=== PATIENT | female | born 2000 | race Caucasian/White ===

== ENCOUNTER → 2020-07-20 18:54 | Observation (INO) ==
[2020-07-20 14:41] LABS: Bacteria,Urine Few per hpf (None-Few); Bilirubin,Urine Negative (Negative); Blood,Urine Negative (Negative); Clarity,Urine Clear (Clear); Color,Urine Colorless (Yellow); Glucose,Urine (UA) Normal (Normal); Ketones,Urine Negative (Negative); Leukocyte Esterase,Urine Moderate (Negative); Nitrite,Urine Negative (Negative); PH,Urine 6.5 pH Units (5.0-8.0); Protein,Urine Negative (Neg-Trace); RBC,Urine 0-3 per hpf (0-3); Specific Gravity,Urine < 1.005 (1.010-1.025); Squamous Epithelial Cell,Urine Moderate per hpf (None-Few); Urobilinogen,Urine Normal (Normal); WBC,Urine 0-3 per hpf (0-3)
[2020-07-20 15:58] LABS: Basophils # 0.1 K/mcL (0.0-0.2); Basophils % 0.4 %; Eosinophils # 0.2 K/mcL (0.0-0.6); Eosinophils % 1.3 %; Hematocrit 31.8 % (35.3-44.9); Hemoglobin 10.8 g/dL (11.5-15.4); Immature Granulocytes % 2.2 % (0-4); Lymphocytes # 2.3 K/mcL (0.6-4.6); Lymphocytes % 16.7 %; Mean Corpuscular Hemoglobin 29.6 pg (28.0-33.3); Mean Corpuscular Volume 87.1 fL (83.0-100.0); Mean Platelet Volume 11.8 fL (9.4-12.4); Monocytes % 7.3 %; Neutrophils # 10.2 K/mcL (1.6-8.9); Platelet Count 158 K/mcL (140-400); Red Blood Count 3.65 M/mcL (3.82-4.97); Red Cell Distribution Width 12.7 % (11.5-14.5); Segmented Neutrophils % 72.1 %; White Blood Count 14.1 K/mcL (4.3-11.1)
[2020-07-20 16:20] LABS: Alanine Aminotransferase 9 Units/L (7-52); Albumin 3.4 g/dL (3.5-5.7); Albumin/Globulin Ratio 1.4 (1.1-2.2); Alkaline Phosphatase 65 Units/L (34-104); Aspartate Amino Transferase 12 Units/L (13-39); BUN/Creatinine Ratio 18 (6-26); Bilirubin,Total 0.3 mg/dL (0.3-1.0); Blood Urea Nitrogen 7 mg/dL (6-20); Calcium 8.7 mg/dL (8.6-10.3); Carbon Dioxide 22 mEq/L (23-29); Chloride 106 mEq/L (98-107); Globulin 2.5 g/dL (2.4-3.5); Glucose 87 mg/dL (70-105); Osmolality,Calculated 277 (280-300); Potassium 3.8 mEq/L (3.5-5.1); Sodium 135 mEq/L (136-145); Total Protein 5.9 g/dL (6.4-8.9); eGFR For African Americans > 60 (> 60); eGFR For Non-African Americans > 60 (> 60)
[~2020-07-20 18:54] MED LIST: Morphine Sulfate 2 MG/ML SYRINGE IVP PRN; Ondansetron 4 MG/2 ML VIAL IVP PRN; Ringers Solution, Lactated 1,000 ML IVC ONE; Ringers Solution, Lactated 1,000 ML ONE
== END | disposition home or self-care (01) ==
LOC: 1NENULAB
PROVIDERS: ADMIT Obstetrics & Gynecology; ATTEND Obstetrics & Gynecology

== ENCOUNTER → 2020-08-18 18:50 | Observation (INO) | END | disposition home or self-care (01) | LOC: 1NENULAB | PROVIDERS: ADMIT Student in an Organized Health Care Education/Training Program; ATTEND Student in an Organized Health Care Education/Training Program ==

== ENCOUNTER 2020-09-05 22:00 | Inpatient (IN) ==
[2020-09-06] MEDS ORDERED: Lidocaine 1% 20 ML MDV INFILT PRN (02:16)
[2020-09-06] MEDS ORDERED: Naloxone 0.4 MG/ML INJ IVP PRN (02:16)
[2020-09-06] MEDS ORDERED: Famotidine 20 MG/2 ML VIAL IVP PRN (02:16)
[2020-09-06] MEDS ORDERED: Metoclopramide 10 MG/2 ML VIAL IVP PRN (02:16)
[2020-09-06] MEDS ORDERED: D5% in Lactated Ringers 1,000 ML IVC SCH (02:30)
[2020-09-06] MEDS ORDERED: Oxytocin 20 units/ LR 1000 mL 20 UNIT/1,000 ML BAG IVC SCH (02:30)
[2020-09-06 03:26] LABS: Amphetamine Screen,Urine Negative ng/mL (Cutoff=1000); Barbiturate Screen,Urine Negative ng/mL (Cutoff=200); Benzodiazepines Screen,Urine Negative ng/mL (Cutoff=200); Cannabinoid Screen,Urine Negative ng/mL (Cutoff = 50); Cocaine Screen,Urine Negative ng/mL (Cutoff= 300); Opiate Screen,Urine Negative ng/mL (Cutoff=300); Phencyclidine Screen,Urine Negative ng/mL (Cutoff=25)
[2020-09-06 03:30] LABS: Basophils # 0.1 K/mcL (0.0-0.2); Basophils % 0.4 %; Eosinophils # 0.3 K/mcL (0.0-0.6); Eosinophils % 1.8 %; Hematocrit 35.7 % (35.3-44.9); Hemoglobin 11.7 g/dL (11.5-15.4); Immature Granulocytes % 1.3 % (0-4); Lymphocytes # 3.4 K/mcL (0.6-4.6); Lymphocytes % 24.2 %; Mean Corpuscular HGB Conc 32.8 g/dL (31.6-35.5); Mean Corpuscular Hemoglobin 28.9 pg (28.0-33.3); Mean Corpuscular Volume 88.1 fL (83.0-100.0); Mean Platelet Volume 12.4 fL (9.4-12.4); Monocytes # 1.2 K/mcL (0.0-1.3); Monocytes % 8.5 %; Platelet Count 158 K/mcL (140-400); Red Blood Count 4.05 M/mcL (3.82-4.97); Red Cell Distribution Width 13.8 % (11.5-14.5); Segmented Neutrophils % 63.8 %; White Blood Count 14.1 K/mcL (4.3-11.1)
[2020-09-06] MEDS: miSOPROStoL 25 MCG TABLET VG PRN ×2 (03:38→09:29)
[2020-09-06] MEDS ORDERED: Vancomycin 1,750 MG/517.5 ML IV.SOLN IVPB SCH ×2 (04:00→12:00)
[2020-09-06 04:02] LABS: Adenovirus Not Detected (Not Detect); Bordetella Pertussis Not Detected (Not Detect); Chlamydophila pneumoniae Not Detected (Not Detect); Coronavirus 229E Not Detected (Not Detect); Coronavirus HKU1 Not Detected (Not Detect); Coronavirus NL63 Not Detected (Not Detect); Coronavirus OC43 Not Detected (Not Detect); Human Metapneumovirus Not Detected (Not Detect); Human Rhinovirus/Enterovirus Not Detected (Not Detect); Influenza A Subtype 2009 H1 Not Detected (Not Detect); Influenza B Not Detected (Not Detect); Mycoplasma pneumoniae Not Detected (Not Detect); Parainfluenza Virus 1 Not Detected (Not Detect); Parainfluenza Virus 2 Not Detected (Not Detect); Parainfluenza Virus 3 Not Detected (Not Detect); Parainfluenza Virus 4 Not Detected (Not Detect); Respiratory Syncytial Virus Not Detected (Not Detect); SARS-CoV-2 Not Detected (Not Detect)
[2020-09-06] MEDS ORDERED: Famotidine 20 MG/2 ML VIAL IVP STA (08:53)
[2020-09-06] MEDS ORDERED: EPHEDrine 50 MG/ML VIAL IVP PRN (09:48)
[2020-09-06] MEDS ORDERED: Ringers Solution, Lactated 1,000 ML ONE ×2 (11:22→18:09)
[2020-09-06] MEDS: *HR* Nalbuphine 10 MG/ML AMPUL IV PRN ×2 (12:01→14:51)
[2020-09-06] MEDS: Epidural Premix (fent/bupiv) 110 ML EP SCH (18:41)
[2020-09-06] MEDS: Vancomycin 1,750 MG/517.5 ML IV.SOLN IVPB SCH (21:37)
[2020-09-07] MEDS ORDERED: Ringers Solution, Lactated 1,000 ML ONE ×3 (00:55→09:23)
[2020-09-07] MEDS: Vancomycin 1,750 MG/517.5 ML IV.SOLN IVPB SCH (05:28)
[2020-09-07] MEDS: Epidural Premix (fent/bupiv) 110 ML EP SCH (10:24)
[2020-09-07] MEDS ORDERED: Ondansetron 4 MG/2 ML VIAL IVP PRN (11:15)
[2020-09-07] MEDS ORDERED: Oxytocin 20 units/ LR 1000 mL 20 UNIT/1,000 ML BAG IVC SCH (16:31)
[2020-09-07] MEDS ORDERED: Lanolin 7 G OINT...G. TP PRN (16:31)
[2020-09-07] MEDS ORDERED: Measles/Mumps/Rubella Vacc 0.5 ML VIAL SQ PRN (16:31)
[2020-09-07] MEDS ORDERED: Acetaminophen 325 MG TABLET PO PRN (16:31)
[2020-09-07] MEDS ORDERED: *HR* HYDROcodone/Acet 5/325 mg TABLET PO PRN (16:31)
[2020-09-07] MEDS ORDERED: Benzocaine/Menthol 56 GM AEROSOL SPRAY TP PRN (16:31)
[2020-09-07] MEDS: Ibuprofen 600 MG TABLET PO PRN (19:46)
[2020-09-08] MEDS: Prenatal Vit/FA 1 EACH TABLET PO SCH (08:11)
[2020-09-08] MEDS: Ibuprofen 600 MG TABLET PO PRN ×2 (08:11→19:34)
[2020-09-09] MEDS: Ibuprofen 600 MG TABLET PO PRN (02:21)
[2020-09-09 08:01] VITALS: BP 102/57
[2020-09-09] MEDS: Prenatal Vit/FA 1 EACH TABLET PO SCH (09:13)
== END 2020-09-09 10:47 | disposition home or self-care (01) | DRG 805 ==
LOC: 1NENULAB 09-06 01:58 → 1NENUOBS 09-07 19:41
PROVIDERS: ADMIT Obstetrics & Gynecology; ATTEND Obstetrics & Gynecology